=== PATIENT | male | born 1955 | race Caucasian/White ===

== ENCOUNTER 2020-08-09 08:34 | Outpatient (CLI) | payer BC, SELFPAY ==
--- NOTE | 2020-08-09 08:45 | XR_ITS ---
WS: [id number] XR KUB [id number] REASON FOR EXAM: UROLITHIASIS FINDINGS: Small bilateral renal calculi unchanged compared to 08/07/2019. No other urinary tract calculi. Unremarkable bowel gas pattern. No free air or retroperitoneal air. No significant abnormality of the lumbar spine or bony pelvis. XR/XR KUB [id number] IMPRESSION: Stable renal calculi as above.
== END 2020-08-09 08:35 | disposition home or self-care (01) ==
PROVIDERS: PCP Urology; Visit Provider Urology
DX: N20.0 Calculus of kidney (principal)
CPT/HCPCS: 74018; 81003; G0103

== ENCOUNTER 2021-08-09 08:48 | Outpatient (CLI) | payer OTHER, SELFPAY ==
--- NOTE | 2021-08-09 08:45 | XR_ITS ---
WS: [email or web address] XR KUB [id number] REASON FOR EXAM: KIDNEY STONE FINDINGS: Small intrarenal calculus seen over the lower right kidney. Small calculus identified over the lower left kidney and left mid kidney. No other urinary tract calculi identified in the abdomen or pelvis. No free air or retroperitoneal air. Unremarkable bowel gas pattern. No mass identified. XR/XR KUB [id number] IMPRESSION: The examination is essentially unchanged compared to 08/09/2020. Small bilatera l intrarenal calculi.
== END 2021-08-09 08:49 | disposition home or self-care (01) ==
LOC: RAD 08:52
PROVIDERS: PCP Urology; Visit Provider Urology
DX: N20.0 Calculus of kidney (principal)
CPT/HCPCS: 74018; 81003; G0103

== ENCOUNTER 2022-08-10 10:03 | Outpatient (CLI) | payer BC, SELFPAY ==
--- NOTE | 2022-08-10 10:26 | XR_ITS ---
WS: [id number] KUB, AP view, 08/10/2022 Clinical Data: Urolithiasis Comparison: KUB, 08/09/2021 Findings: There is a single calcification overlying the right kidney and 2 calcifications overlying the left ki dney. No abnormal intraabdominal masses are seen. There is no dilatated small bowel or evidence of obstruct ion. There is a moderate amount of fecal material throughout the colon. XR/XR KUB [id number] Impression: No change in bilateral renal calculi.
== END 2022-08-10 10:04 | disposition home or self-care (01) ==
PROVIDERS: Visit Provider Urology
DX: N20.0 Calculus of kidney (principal)
CPT/HCPCS: 74018; 81003

== ENCOUNTER 2022-11-08 11:39 | Outpatient (CLI) | payer MEDICARE, SELFPAY ==
--- NOTE | 2022-11-08 12:08 | XR_ITS ---
WS: [email or web address] XR cervical spine 3V* [id number] REASON FOR EXAM: radicular pain down right arm FINDINGS: Straightening of the normal lordosis of the spine. Normal odontoid with no significant focal cervical vertebral body abnormality. Moderate narrowing of the intervertebral disc space at C4-C5 and C6-C7. Anterior and uncinate osteoph ytosis C4-C7 with large bridging complex anterior osteophyte at C6-C7. Moderate degenerative changes in the facet joints at C4-C5. 2.5 mm of anterolisthesis of C5 on C6. XR/XR cervical spine 3V* [id number] IMPRESSION: Degenerative spondylosis of the spine as above.
--- NOTE | 2022-11-08 12:08 | XR_ITS ---
WS: [email or web address] XR shoulder RT min 2V* [id number] REASON FOR EXAM: radicular pain down right arm FINDINGS: No fracture or focal bone lesion. Moderate narrowing of the acromioclavicular joint space. Mild osteophytosis. Mild narrowing of the glenohumeral joint. Moderate subchondral sclerosis and small marginal osteophyt osis of the glenoid. No abnormality of the humeral head. No soft tissue abnormality. 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
== END 2022-11-08 11:40 | disposition home or self-care (01) ==
PROVIDERS: PCP Family Medicine; Visit Provider Family Medicine
DX: M79.2 Neuralgia and neuritis, unspecified (principal); M19.011 Primary osteoarthritis, right shoulder
CPT/HCPCS: 72040; 73030; 80053; 80061; 85025

== ENCOUNTER → 2022-11-13 08:35 | Outpatient (BNVA) | payer MEDICARE, SELFPAY | PROVIDERS: PCP Family Medicine; Visit Provider Family Medicine | DX: R73.03 Prediabetes (principal); Z13.1 Encounter for screening for diabetes mellitus | CPT/HCPCS: 83036 ==

== ENCOUNTER → 2022-11-16 10:07 | Outpatient (BNVA) | payer MEDICARE, SELFPAY | PROVIDERS: PCP Family Medicine; Referring Provider Family Medicine; Visit Provider Physician Assistant | DX: M50.123 Cervical disc disorder at C6-C7 level with radiculopathy (principal) | CPT/HCPCS: 72050; 99203 ==

== ENCOUNTER → 2022-11-30 14:27 | Outpatient (BNVA) | payer MEDICARE, SELFPAY | PROVIDERS: PCP Family Medicine; Visit Provider Physician Assistant | DX: M54.12 Radiculopathy, cervical region (principal) | CPT/HCPCS: 99213 ==

== ENCOUNTER → 2022-12-28 13:31 | Outpatient (BNVA) | payer MEDICARE, SELFPAY | PROVIDERS: PCP Family Medicine; Visit Provider Physician Assistant | DX: M54.12 Radiculopathy, cervical region (principal) | CPT/HCPCS: 99213 ==

== ENCOUNTER 2023-02-13 08:56 | Outpatient (CLI) | payer MEDICARE, SELFPAY ==
--- NOTE | 2023-02-13 09:30 | MR_ITS ---
WS: [email or web address] MRI CERVICAL SPINE NONCONTRAST HISTORY: pain COMPARISON: None available. Technique: Multiplanar, multisequence noncontrast imaging of the cervical spine. Straightening and reversal of the normal cervical lordosis. Most significant reversal at C4-5. Signal within the cervical cord is normal. Visualized posterior fossa is unremarkable. Craniocervical junction, C1 and C2 relationship, odontoid process and soft tissues are normal. C2-C3: Mild bilateral facet joint arthritis. Mild LEFT foraminal stenosis. C3-C4: Mild osteophytic ridging and facet arthritis. Small LEFT foraminal osteophytes with mild shawn inal narrowing. C4-C5: Diffuse osteophytic ridging and annular disc bulging. Moderate RIGHT paracentral and proximal foraminal disc protrusion. Deformity of the RIGHT lateral thecal sac and foramina. Exiting nerve root s are being displaced. Mild central stenosis with mild LEFT foraminal stenosis. Moderate to severe RI GHT foraminal stenosis due to predominantly large osteophyte with associated disc. C5-C6: Mild annular disc bulging and osteophytic ridging. Facet arthritis encroaches into the LEFT la teral thecal sac. Mild bilateral foraminal stenosis. C6-C7: Osteophytic ridging and facet arthritis. Moderate bilateral foraminal stenosis. C7-T1: Normal. Enlarged nodular thyroid. MR/MR cervical spin wo con* [id number] IMPRESSION: 1. No marrow edema or acute fracture. 2. Reversal the normal cervical lordosis centered predominantly at C4-5. 3. Moderate RIGHT paracentral proximal foraminal disc protrusion at C4-5. Defo rmity of the RIGHT lateral thecal sac and cervical cord. 4. C4-5: Mild central and LEFT foraminal stenosis with moderate to severe RIGH T foraminal stenosis due to the disc and osteophyte complex. 5. Moderate bilateral foraminal stenosis at C6-7 and mild at C5-6. 6. Mild LEFT foraminal stenosis at C2-3 and C3-4.
== END 2023-02-13 08:57 | disposition home or self-care (01) ==
PROVIDERS: PCP Family Medicine; Visit Provider Physician Assistant
DX: M54.12 Radiculopathy, cervical region (principal); M50.221 Other cervical disc displacement at C4-C5 level; M48.02 Spinal stenosis, cervical region
CPT/HCPCS: 72141; 99213

== ENCOUNTER → 2023-02-20 09:47 | Outpatient (BNVA) | payer MEDICARE, SELFPAY | PROVIDERS: PCP Family Medicine; Visit Provider Physician Assistant | DX: M50.30 Other cervical disc degeneration, unspecified cervical region (principal); M47.22 Other spondylosis with radiculopathy, cervical region | CPT/HCPCS: 99213 ==

== ENCOUNTER → 2023-04-11 10:37 | Outpatient (BNVA) | payer MEDICARE, SELFPAY | PROVIDERS: PCP Family Medicine; Visit Provider Anesthesiology Pain Medicine | DX: M50.30 Other cervical disc degeneration, unspecified cervical region; M47.22 Other spondylosis with radiculopathy, cervical region; M25.511 Pain in right shoulder | CPT/HCPCS: 99204 ==

== ENCOUNTER → 2023-04-26 14:21 | Outpatient (BNVA) | payer MEDICARE, SELFPAY | PROVIDERS: PCP Family Medicine; Visit Provider Anesthesiology Pain Medicine | DX: M54.12 Radiculopathy, cervical region (principal) | CPT/HCPCS: 62321; J1100 ==

== ENCOUNTER → 2023-05-15 09:46 | Outpatient (BNVA) | payer MEDICARE, SELFPAY | PROVIDERS: PCP Family Medicine; Visit Provider Physician Assistant | DX: M47.22 Other spondylosis with radiculopathy, cervical region | CPT/HCPCS: 99213 ==

== ENCOUNTER 2023-05-17 08:13 | Outpatient (RCR) | payer MEDICARE, SELFPAY | END 2023-05-26 23:59 | disposition home or self-care (01) | LOC: SPT 08:13 | PROVIDERS: PCP Family Medicine; Visit Provider Orthopaedic Surgery | DX: M54.2 Cervicalgia (principal) | CPT/HCPCS: 97110; 97161 ==

== ENCOUNTER 2023-05-29 13:17 | Outpatient (RCR) | payer MEDICARE, SELFPAY | END 2023-06-26 23:59 | disposition home or self-care (01) | LOC: SPT 13:17 | PROVIDERS: PCP Family Medicine; Visit Provider Orthopaedic Surgery | DX: M54.2 Cervicalgia (principal) | CPT/HCPCS: 97110 ==

== ENCOUNTER → 2023-08-09 08:55 | Outpatient (BNVA) | payer MEDICARE, SELFPAY | PROVIDERS: PCP Family Medicine; Visit Provider Physician Assistant | DX: M50.30 Other cervical disc degeneration, unspecified cervical region (principal); M47.22 Other spondylosis with radiculopathy, cervical region | CPT/HCPCS: 72040; 99213 ==

== ENCOUNTER → 2023-10-01 10:18 | Outpatient (BNVA) | payer MEDICARE, SELFPAY | PROVIDERS: PCP Family Medicine; Visit Provider Anesthesiology Pain Medicine | DX: M50.30 Other cervical disc degeneration, unspecified cervical region; M47.22 Other spondylosis with radiculopathy, cervical region | CPT/HCPCS: 99214 ==

== ENCOUNTER → 2023-10-26 10:25 | Outpatient (BNVA) | payer MEDICARE, SELFPAY | PROVIDERS: PCP Family Medicine; Visit Provider Family Medicine | DX: Z12.5 Encounter for screening for malignant neoplasm of prostate (principal); I25.10 Atherosclerotic heart disease of native coronary artery without angina pectoris; I10 Essential (primary) hypertension | CPT/HCPCS: 80053; 80061; G0103 ==

== ENCOUNTER → 2023-10-30 08:45 | Outpatient (BNVA) | payer MEDICARE, SELFPAY | PROVIDERS: PCP Family Medicine; Visit Provider Anesthesiology Pain Medicine | DX: M50.30 Other cervical disc degeneration, unspecified cervical region; M47.22 Other spondylosis with radiculopathy, cervical region | CPT/HCPCS: 99214 ==

== ENCOUNTER → 2024-01-30 09:02 | Outpatient (BNVA) | payer MEDICARE, SELFPAY | PROVIDERS: PCP Family Medicine; Visit Provider Anesthesiology Pain Medicine | DX: M50.30 Other cervical disc degeneration, unspecified cervical region; M47.22 Other spondylosis with radiculopathy, cervical region | CPT/HCPCS: 99214 ==

== ENCOUNTER → 2025-01-21 09:13 | Outpatient (BNVA) | payer MEDICARE, SELFPAY | PROVIDERS: PCP Family Medicine; Visit Provider Family Medicine | DX: Z12.5 Encounter for screening for malignant neoplasm of prostate (principal); I10 Essential (primary) hypertension; I25.10 Atherosclerotic heart disease of native coronary artery without angina pectoris; N40.1 Benign prostatic hyperplasia with lower urinary tract symptoms; R35.0 Frequency of micturition | CPT/HCPCS: 80053; 80061; G0103 ==

== ENCOUNTER → 2025-01-23 08:45 | Outpatient (BNVA) | payer MEDICARE, SELFPAY | PROVIDERS: PCP Family Medicine; Visit Provider Family Medicine | DX: R73.9 Hyperglycemia, unspecified (principal) | CPT/HCPCS: 83036 ==